=== PATIENT | female | born 1945 | race Hispanic/Latino ===

== ENCOUNTER 2018-04-18 15:47 | Emergency (ER) | payer MEDICARE, OTHER ==
[2018-04-18 15:57] VITALS: TEMP 99.3
[2018-04-18] MEDS ORDERED: Albuterol-Ipratrop 3 mg / 0.5 (3 ml) UD INH STA (16:06)
--- NOTE | 2018-04-18 16:26 | ED PDOC ---
HPI: Asthma Time Seen by Provider: 04/18/18 15:57 Chief Complaint (Nursing): Cough, Cold, Congestion Chief Complaint (Provider): Shortness of Breath, Asthma History Per: Patient History/Exam Limitations: no limitations Onset/Duration Of Symptoms: Days (x3) Current Symptoms Are (Timing): Still Present Additional Complaint(s): 72 year old female presents to the ED for evaluation of shortness of breath and asthma exacerbation [place] associated with a post nasal drip. She states two days ago she was seen at an urgent care, where she was given a z-pack and inhaler with no relief. Patient reports having a history of asthma, but it is intermittent, and mild, as she has never had to be hospitalized or be on steroids. She notes she usually only uses her inhaler once a year, and cannot identify her triggers. PMD: patient is visiting from [place], PMD is located there Past Medical History Reviewed: Historical Data, Nursing Documentation, Vital Signs Vital Signs: Last Vital Signs Temp 99.3 F 04/18/18 15:52 Pulse 81 04/18/18 15:52 Resp 22 04/18/18 15:52 BP 135/98 H 04/18/18 15:52 Pulse Ox 95 04/18/18 15:52 - Medical History PMH: Asthma, Diabetes (borderline, diet controlled) - Surgical History Other surgeries: hysterectomy, correction of ureter of left kidney, inguinal kidney surgery - Family History Family History: States: No Known Family Hx - Social History Current smoker - smoking cessation education provided: No Alcohol: Social Drugs: Denies - Home Medications Home Medications: Ambulatory Orders Medication Instructions Recorded Albuterol 0.083% [Albuterol 3 ml IH Q4 PRN #20 neb 04/18/18 Sulfate 3 Ml] Nebulizer [Aeroeclipse II] 1 each MC Q4 PRN #1 each 04/18/18 Prednisone 50 mg PO DAILY #4 tablet 04/18/18 - Allergies Allergies/Adverse Reactions: Allergies Allergy/AdvReac Type Severity Reaction Status Date / Time Penicillins Allergy RASH Verified 04/18/18 15:51 Sulfa (Sulfonamide Allergy RASH Verified 04/18/18 15:51 Antibiotics) Review of Systems ROS Statement: Except As Marked, All Systems Reviewed And Found Negative ENT: Positive for: Other (post nasal drip) Respiratory: Positive for: Shortness of Breath (asthma) Physical Exam - Reviewed Nursing Documentation Reviewed: Yes Vital Signs Reviewed: Yes - Physical Exam Appears: Positive for: Non-toxic, No Acute Distress Head Exam: Positive for: ATRAUMATIC, NORMOCEPHALIC Skin: Positive for: Warm, Dry Eye Exam: Positive for: EOMI, PERRL ENT: Negative for: Pharyngeal Erythema, Tonsillar Exudate Neck: Positive for: Painless ROM, Supple Cardiovascular/Chest: Positive for: Regular Rate, Rhythm. Negative for: Murmur Respiratory: Positive for: Wheezing (diffuse expiratory), Respiratory Distress ( mild). Negative for: Accessory Muscle Use, Rales, Rhonchi Gastrointestinal/Abdominal: Positive for: Soft. Negative for: Tenderness Back: Positive for: Normal Inspection. Negative for: Decreased ROM Extremity: Positive for: Normal ROM. Negative for: Deformity Lymphatic: Negative for: Adenopathy Neurologic/Psych: Positive for: Alert. Negative for: Motor/Sensory Deficits - Laboratory Results Result Diagrams: 04/18/18 16:36 04/18/18 16:36 - ECG O2 Sat by Pulse Oximetry: 95 (RA) Pulse Ox Interpretation: Normal Medical Decision Making Medical Decision Making: Time: 16:09 Initial Impression: asthma exacerbation Ddx includes but is not limited to: pneumonia, bronchitis, upper respiratory infection Initial Plan: --CMP --Lact acid --CBC with differential --Chest x-ray --Duoneb 9 ml INH --SOLU-Medrol 125 mg IVP --Blood culture --Peak flow pre/post Chest X-Ray: FINDINGS: LUNGS: No active pulmonary disease. PLEURA: No significant pleural effusion identified. No pneumothorax apparent. CARDIOVASCULAR: Normal. OSSEOUS STRUCTURES: Mild thoracic dextroscoliosis. VISUALIZED UPPER ABDOMEN: Normal. OTHER FINDINGS: None. IMPRESSION: No active disease. 18:00 pm Patient feels marketedly better and comfortable. Wheezing significantly decreased. No respiratory distress. Patient is stable for discharge and instructions given on use of steroids and albuterol nebulizer for outpatient care. Scribe Attestation: Documented by Alba Galeas, acting as a scribe for Gely Bailey MD. Provider Scribe Attestation: All medical record entries made by the Scribe were at my direction and personally dictated by me. I have reviewed the chart and agree that the record accurately reflects my personal performance of the history, physical exam, medical decision making, and the department course for this patient. I have also personally directed, reviewed, and agree with the discharge instructions and disposition. Disposition - Clinical Impression Clinical Impression: Asthma exacerbation - Disposition Disposition: Routine/Home Disposition Time: 18:00 Condition: IMPROVED Additional Instructions: PLEASE FOLLOW UP WITH YOUR DOCTOR IN 1-2 DAYS. Prescriptions: Albuterol 0.083% [Albuterol Sulfate 3 Ml] 3 ml IH Q4 PRN #20 neb PRN Reason: asthma Nebulizer [Aeroeclipse II] 1 each MC Q4 PRN #1 each PRN Reason: wheeze Prednisone 50 mg PO DAILY #4 tablet Instructions: Asthma, Adult (DC) Forms: [employer] ([place])
[2018-04-18 16:48] LABS: BASO # 0.1 K/uL (0.0-0.2); BASO % 0.4 % (0.0-2.0); EOS % 8.3 % (0.0-4.0); HEMOGLOBIN 16.5 g/dL (12.0-16.0); LYMPH # 2.2 K/uL (1.0-4.3); LYMPH % 18.3 % (20.0-40.0); MEAN CELL VOLUME 89.8 fl (81.0-99.0); MEAN CORPUSCULAR HEMOGLOBIN 30.3 pg (27.0-31.0); MEAN CORPUSCULAR HGB CONC 33.8 g/dL (33.0-37.0); MEAN PLATELET VOLUME 11.1 fl (7.2-11.7); MONO # 0.6 K/uL (0.0-0.8); MONO % 5.1 % (0.0-10.0); NEUT % 67.9 % (50.0-75.0); NRBC % 0.1 % (0.0-0.0); RBC 5.43 Mil/uL (3.80-5.20); RED CELL DISTRIBUTION WIDTH 12.8 % (11.5-14.5); WHITE BLOOD COUNT 11.8 K/uL (4.8-10.8)
[2018-04-18 16:58] LABS: CALCIUM 10.8 mg/dL (8.4-10.2); GFR AFRICAN-AMERICAN > 60; GFR NON-AFRICAN AMERICAN > 60
[2018-04-18 17:04] LABS: ALB/GLOB RATIO 1.4 (1.0-2.1); ALBUMIN 5.1 g/dL (3.5-5.0); ALT/SGPT 36 U/L (9-52); AST/SGOT 45 U/L (14-36); BLOOD UREA NITROGEN 9 mg/dl (7-17)
--- NOTE | 2018-04-18 17:23 | RAD ---
Date of service: 04/18/2018 HISTORY: persistent asthma wheeze COMPARISON: No prior. TECHNIQUE: Chest PA and lateral FINDINGS: LUNGS: No active pulmonary disease. PLEURA: No significant pleural effusion identified. No pneumothorax apparent. CARDIOVASCULAR: Normal. OSSEOUS STRUCTURES: Mild thoracic dextroscoliosis. VISUALIZED UPPER ABDOMEN: Normal. OTHER FINDINGS: None. IMPRESSION: No active disease.
[2018-04-18 19:05] VITALS: BP 142/63; PULSE 91; RESP 18
[2018-04-19 16:49] VITALS: O2SAT 95
== END 2018-04-18 18:40 | disposition home or self-care (01) ==
LOC: H.ER 15:47
DX: J45.901 Unspecified asthma with (acute) exacerbation (principal); Z88.0 Allergy status to penicillin; Z90.710 Acquired absence of both cervix and uterus
CPT/HCPCS: 71046; 80053; 83605; 85025; 87040; 96374; 99282; J2930